=== PATIENT | male | born 1945 | race Caucasian/White ===

== ENCOUNTER 2025-10-16 10:58 | Inpatient (IN) ==
[2025-10-16] MEDS: 0.9 % SODIUM CHLORIDE 1,000 ML IV ONE ×2 (11:35→12:57)
[2025-10-16] MEDS: metroNIDAZOLE 500 MG/100 ML BAG IV ONE (11:49)
[2025-10-16] MEDS: CIPROFLOXACIN 400 MG/200 ML BAG IV ONE (11:50)
[2025-10-16] MEDS: VANCOMYCIN 1,500 MG in 0.9 % SODIUM CHLORIDE 500 ML IV ONE ×2 (12:16→12:57)
[2025-10-16] MEDS ORDERED: HYDROmorphone 0.5 MG/0.5 ML SYRINGE IV PRN (12:21)
[2025-10-16 12:24] LABS: Basophils # (Auto) 0.05 K/mcL (0.00-0.30); Basophils % (Auto) 0.3 % (0.0-2.0); Eosinophils # (Auto) 0.16 K/mcL (0.00-0.70); Eosinophils % (Auto) 1.0 % (0.0-7.0); Hematocrit 37.4 % (40.1-51.0); Hemoglobin 12.1 g/dL (13.7-17.5); Lymphocytes # (Auto) 1.77 K/mcL (1.50-4.80); Lymphocytes % (Auto) 11.0 % (15.5-49.0); Mean Corpuscular HGB Conc 32.4 g/dL (31.0-36.0); Monocytes # (Auto) 1.03 K/mcL (0.10-0.90); Monocytes % (Auto) 6.4 % (1.0-12.0); Neutrophils % (Auto) 81.0 % (38.0-78.0); Platelet Count 307 K/mcL (140-440); RBC 4.20 M/mcL (4.63-6.08); WBC 16.1 K/mcL (4.5-11.0)
[2025-10-16 12:37] LABS: ALT/SGPT 21 U/L (<40); AST/SGOT 33 U/L (<40); Albumin 3.1 gm/dL (3.2-5.2); Albumin/Globulin Ratio 0.8 (1.0-2.3); Alkaline Phosphatase 113 U/L (39-117); Anion Gap 12.0 (8.0-16.0); Bilirubin,Total 0.4 mg/dL (0.1-1.0); Blood Urea Nitrogen 34 mg/dL (8-23); Calcium 9.2 mg/dL (8.6-10.4); Carbon Dioxide 27 mmol/L (22-30); Chloride 96 mmol/L (96-108); Globulin 3.7 gm/dL (2.2-3.7); Glucose 203 mg/dL (70-105); Potassium 4.4 mmol/L (3.3-5.1); Sodium 135 mmol/L (133-145); Thyroid Stimulating Hormone 1.04 uIU/mL (0.27-5.01)
[2025-10-16] MEDS: 0.9 % SODIUM CHLORIDE 250 ML IV ONE (14:14)
[2025-10-16] MEDS ORDERED: DEXTROSE 31 GM ORAL.SUSP PO PRN (16:42)
[2025-10-16] MEDS ORDERED: VANCOMYCIN PER PHARMACY IV SCH (16:42)
[2025-10-16] MEDS ORDERED: DEXTROSE 50% 50 ML VIAL IV PRN ×2 (16:42)
[2025-10-16 17:36] LABS: C-Reactive Protein 15.70 mg/dL (0.03-0.80)
[2025-10-16] MEDS: CEFEPIME 2 GM VIAL IV SCH (17:41)
[2025-10-16] MEDS: 0.9 % SODIUM CHLORIDE 10 ML SYRINGE IV SCH (17:41)
[2025-10-16] MEDS: INSULIN LISPRO 1 UNIT/0.01 ML UNIT SQ SCH ×2 (17:45→19:07)
[2025-10-16] MEDS: metroNIDAZOLE 500 MG/100 ML BAG IV SCH ×2 (18:31→21:50)
[2025-10-16] MEDS: VANCOMYCIN 1,000 MG in 0.9 % SODIUM CHLORIDE 250 ML IV SCH (21:50)
[2025-10-16] MEDS: DOCUSATE SODIUM 100 MG CAPSULE PO SCH (21:50)
[2025-10-17] MEDS: LACTATED RINGERS 1,000 ML IV SCH (01:00)
[2025-10-17 06:29] LABS: Basophils # (Auto) 0.08 K/mcL (0.00-0.30); Basophils % (Auto) 0.5 % (0.0-2.0); Eosinophils # (Auto) 0.38 K/mcL (0.00-0.70); Eosinophils % (Auto) 2.6 % (0.0-7.0); Hematocrit 34.0 % (40.1-51.0); Hemoglobin 10.9 g/dL (13.7-17.5); Lymphocytes # (Auto) 1.96 K/mcL (1.50-4.80); Lymphocytes % (Auto) 13.3 % (15.5-49.0); Mean Corpuscular HGB Conc 32.1 g/dL (31.0-36.0); Monocytes # (Auto) 1.07 K/mcL (0.10-0.90); Monocytes % (Auto) 7.2 % (1.0-12.0); Neutrophils % (Auto) 76.1 % (38.0-78.0); Platelet Count 283 K/mcL (140-440); RBC 3.79 M/mcL (4.63-6.08); WBC 14.8 K/mcL (4.5-11.0)
[2025-10-17] MEDS ORDERED: NALOXONE HCL 0.4 MG/ML VIAL IV PRN ×2 (08:54→19:06)
[2025-10-17 09:05] LABS: ALT/SGPT 20 U/L (<40); AST/SGOT 29 U/L (<40); Albumin 2.7 gm/dL (3.2-5.2); Albumin/Globulin Ratio 0.8 (1.0-2.3); Alkaline Phosphatase 99 U/L (39-117); Anion Gap 12.0 (8.0-16.0); Bilirubin,Direct 0.2 mg/dL (<0.3); Bilirubin,Total 0.4 mg/dL (0.1-1.0); Blood Urea Nitrogen 25 mg/dL (8-23); Calcium 8.7 mg/dL (8.6-10.4); Carbon Dioxide 24 mmol/L (22-30); Chloride 102 mmol/L (96-108); Globulin 3.5 gm/dL (2.2-3.7); Glucose 138 mg/dL (70-105); Phosphorous 2.3 mg/dL (2.5-4.5); Potassium 4.0 mmol/L (3.3-5.1); Sodium 138 mmol/L (133-145); Triglycerides 68 mg/dL (<150); Uric Acid 4.6 mg/dL (2.5-8.0)
[2025-10-17 09:05] LABS: Bacteria,Urine Few /hpf (0); Bilirubin,Urine NEGATIVE (Negative); Color,Urine LT. YELLOW; Glucose,Urine (UA) >=1000 mg/dL (Negative); Ketones,Urine NEGATIVE (Negative); Leukocyte Esterase,Urine TRACE /uL (Negative); PH,Urine 6.0 (5.0-9.0); Protein,Urine 30 mg/dL (Negative); Specific Gravity,Urine 1.010 (1.000-1.035); Urine Budding Yeast Moderate /hpf; Urobilinogen,Urine 0.2 mg/dL
[2025-10-17 09:05] LABS: C-Reactive Protein 15.00 mg/dL (0.03-0.80)
[2025-10-17] MEDS: GABAPENTIN 400 MG CAPSULE PO SCH (09:21)
[2025-10-17] MEDS: LEVOTHYROXINE 75 MCG TABLET PO SCH (09:21)
[2025-10-17] MEDS: METHOCARBAMOL 1,000 MG/10 ML VIAL IV PRN (09:21)
[2025-10-17] MEDS: TAMSULOSIN 0.4 MG CAPSULE PO SCH (09:21)
[2025-10-17] MEDS: ACETAMINOPHEN 1,000 MG/100 ML BAG IV PRN (09:22)
[2025-10-17] MEDS ORDERED: ETOMIDATE 20 MG/10 ML VIAL IV ONE (16:36)
[2025-10-17] MEDS ORDERED: LIDOCAINE 2% PF 5 ML VIAL ONE (16:36)
[2025-10-17] MEDS ORDERED: ONDANSETRON 4 MG/2 ML VIAL ONE (16:36)
[2025-10-17] MEDS ORDERED: ROPIVACAINE HCL/PF 30 ML VIAL IJ ONE (16:36)
[2025-10-17] MEDS ORDERED: DEXAMETHASONE 10 MG/ML VIAL ONE (16:36)
[2025-10-17] MEDS ORDERED: PHENYLephrine 1 MG/10 ML SYRINGE (ANEST) ONE (18:56)
[2025-10-17] MEDS ORDERED: diphenhydrAMINE 50 MG/ML VIAL IV PRN (19:06)
[2025-10-17] MEDS ORDERED: IPRATROPIUM/ALBUTEROL 3 ML AMPUL.NEB NEB PRN (19:06)
[2025-10-17] MEDS ORDERED: fentaNYL 100 MCG/2 ML VIAL IV PRN (19:06)
[2025-10-17] MEDS ORDERED: ONDANSETRON 4 MG/2 ML VIAL IV PRN (19:06)
[2025-10-17] MEDS ORDERED: METHOCARBAMOL 1,000 MG/10 ML VIAL IV PRN (19:06)
[2025-10-17] MEDS ORDERED: MEPERIDINE 25 MG/ML VIAL IV PRN (19:06)
[2025-10-17] MEDS: ACETAMINOPHEN 1,000 MG/100 ML BAG IV ONE (20:21)
[2025-10-17] MEDS: INSULIN GLARGINE, HUMAN 1 UNIT/0.01 ML SQ SCH (21:27)
[2025-10-17] MEDS: HYDROcodone/APAP 10/325MG TABLET PO PRN (21:47)
[2025-10-17] MEDS: ATORVASTATIN 40 MG TABLET PO SCH (21:47)
[2025-10-17] MEDS: MELATONIN 3 MG TABLET PO PRN (21:48)
[2025-10-17] MEDS: FAMOTIDINE 20 MG TABLET PO SCH (21:49)
[2025-10-18] MEDS: HYDROmorphone 0.5 MG/0.5 ML SYRINGE IV PRN (01:08)
[2025-10-18] MEDS: ONDANSETRON 4 MG/2 ML VIAL IV PRN (01:21)
[2025-10-18 06:34] LABS: Basophils # (Auto) 0.02 K/mcL (0.00-0.30); Basophils % (Auto) 0.2 % (0.0-2.0); Eosinophils # (Auto) 0 K/mcL (0.00-0.70); Eosinophils % (Auto) 0 % (0.0-7.0); Hematocrit 32.4 % (40.1-51.0); Hemoglobin 10.3 g/dL (13.7-17.5); Lymphocytes # (Auto) 1.14 K/mcL (1.50-4.80); Lymphocytes % (Auto) 11.0 % (15.5-49.0); Mean Corpuscular HGB Conc 31.8 g/dL (31.0-36.0); Monocytes # (Auto) 0.04 K/mcL (0.10-0.90); Monocytes % (Auto) 0.4 % (1.0-12.0); Neutrophils % (Auto) 88.0 % (38.0-78.0); Platelet Count 290 K/mcL (140-440); RBC 3.55 M/mcL (4.63-6.08); WBC 10.3 K/mcL (4.5-11.0)
[2025-10-18 06:47] LABS: C-Reactive Protein 13.50 mg/dL (0.03-0.80)
[2025-10-18 06:49] LABS: ALT/SGPT 22 U/L (<40); AST/SGOT 32 U/L (<40); Albumin 2.8 gm/dL (3.2-5.2); Albumin/Globulin Ratio 0.8 (1.0-2.3); Alkaline Phosphatase 95 U/L (39-117); Anion Gap 17.0 (8.0-16.0); Bilirubin,Direct 0.2 mg/dL (<0.3); Bilirubin,Total 0.4 mg/dL (0.1-1.0); Blood Urea Nitrogen 29 mg/dL (8-23); Calcium 8.6 mg/dL (8.6-10.4); Carbon Dioxide 20 mmol/L (22-30); Chloride 102 mmol/L (96-108); Globulin 3.4 gm/dL (2.2-3.7); Glucose 198 mg/dL (70-105); Phosphorous 3.6 mg/dL (2.5-4.5); Potassium 4.4 mmol/L (3.3-5.1); Sodium 139 mmol/L (133-145); Triglycerides 51 mg/dL (<150); Uric Acid 5.3 mg/dL (2.5-8.0)
[2025-10-18] MEDS: DONEPEZIL 10 MG TABLET PO SCH (08:20)
[2025-10-18] MEDS: METOPROLOL SUCCINATE 25 MG TAB.XL.24H PO SCH (14:29)
[2025-10-18] MEDS: PIPERACILLIN SODIUM/TAZOBACTAM 4.5 GM in DEXTROSE 5% IN WATER 100 ML IV SCH (14:56)
[2025-10-18] MEDS: LACTATED RINGERS 1,000 ML IV ONE (16:41)
[2025-10-18] MEDS: LACTATED RINGERS 500 ML IV ONE (17:42)
[2025-10-19 06:29] LABS: ALT/SGPT 20 U/L (<40); AST/SGOT 33 U/L (<40); Albumin 2.7 gm/dL (3.2-5.2); Albumin/Globulin Ratio 0.9 (1.0-2.3); Alkaline Phosphatase 84 U/L (39-117); Anion Gap 12.0 (8.0-16.0); Bilirubin,Direct < 0.2 mg/dL (0-0.3); Bilirubin,Total 0.2 mg/dL (0.1-1.0); Blood Urea Nitrogen 26 mg/dL (8-23); Calcium 8.3 mg/dL (8.6-10.4); Carbon Dioxide 22 mmol/L (22-30); Chloride 104 mmol/L (96-108); Globulin 3.1 gm/dL (2.2-3.7); Glucose 156 mg/dL (70-105); Phosphorous 2.2 mg/dL (2.5-4.5); Potassium 3.3 mmol/L (3.3-5.1); Sodium 138 mmol/L (133-145); Triglycerides 58 mg/dL (<150); Uric Acid 4.7 mg/dL (2.5-8.0)
[2025-10-19] MEDS: HEPARIN 5,000 UNIT/ML VIAL SQ SCH (08:03)
[2025-10-19] MEDS: CLOPIDOGREL 75 MG TABLET PO SCH (12:17)
[2025-10-19] MEDS ORDERED: HEPARIN 10 UNITS/ML 5ML FLUSH IV ONE (14:56)
[2025-10-19] MEDS ORDERED: SODIUM CHLORIDE IRRIG SOLUTION 250 ML BOTTLE IRR ONE (14:56)
[2025-10-19] MEDS ORDERED: LIDOCAINE 1% 10 ML VIAL SQ ONE (14:56)
[2025-10-19] MEDS: HEPARIN 10 UNITS/ML 5ML FLUSH IV SCH ×2 (22:25→22:28)
[2025-10-19] MEDS: 0.9 % SODIUM CHLORIDE 10 ML SYRINGE IV SCH (22:30)
[2025-10-20 05:37] LABS: ALT/SGPT 23 U/L (<40); AST/SGOT 47 U/L (<40); Albumin 2.5 gm/dL (3.2-5.2); Albumin/Globulin Ratio 1.0 (1.0-2.3); Alkaline Phosphatase 75 U/L (39-117); Anion Gap 8.0 (8.0-16.0); Bilirubin,Direct < 0.2 mg/dL (0-0.3); Bilirubin,Total < 0.2 mg/dL (0.1-1.0); Blood Urea Nitrogen 18 mg/dL (8-23); Calcium 8.0 mg/dL (8.6-10.4); Carbon Dioxide 24 mmol/L (22-30); Chloride 106 mmol/L (96-108); Globulin 2.6 gm/dL (2.2-3.7); Glucose 153 mg/dL (70-105); Phosphorous 1.9 mg/dL (2.5-4.5); Potassium 3.4 mmol/L (3.3-5.1); Sodium 138 mmol/L (133-145); Triglycerides 71 mg/dL (<150); Uric Acid 3.6 mg/dL (2.5-8.0)
[2025-10-20] MEDS: ASPIRIN 81 MG TAB.CHEW PO SCH (09:54)
[2025-10-20] MEDS: PHOSPHORUS 250 MG TABLET PO SCH (09:54)
[2025-10-20] MEDS: NEUTRA PHOS 1 PACKET PO SCH (09:55)
[2025-10-20] MEDS: METOPROLOL SUCCINATE 25 MG TAB.XL.24H PO SCH (09:57)
[2025-10-20] MEDS: 0.9 % SODIUM CHLORIDE 1,000 ML IV ONE (10:09)
[2025-10-20] MEDS: POTASSIUM PHOSPHATE 40 MEQ in DEXTROSE 5% IN WATER 500 ML IV ONE (12:56)
[2025-10-20] MEDS: LACTULOSE 20 GM/30 ML ORAL.SOL PO PRN (19:37)
[2025-10-20] MEDS: MELATONIN 3 MG TABLET PO SCH (19:38)
[2025-10-20] MEDS: SENNOSIDES 1 TABLET PO PRN (19:39)
[2025-10-20] MEDS: 0.9 % SODIUM CHLORIDE 10 ML SYRINGE IV PRN (21:29)
[2025-10-21 06:08] LABS: Vancomycin,Random 17.8 ug/mL
[2025-10-21 06:09] LABS: ALT/SGPT 26 U/L (<40); AST/SGOT 55 U/L (<40); Albumin 2.6 gm/dL (3.2-5.2); Albumin/Globulin Ratio 0.9 (1.0-2.3); Alkaline Phosphatase 80 U/L (39-117); Anion Gap 9.0 (8.0-16.0); Bilirubin,Direct < 0.2 mg/dL (0-0.3); Bilirubin,Total 0.3 mg/dL (0.1-1.0); Blood Urea Nitrogen 12 mg/dL (8-23); Calcium 8.1 mg/dL (8.6-10.4); Carbon Dioxide 23 mmol/L (22-30); Chloride 107 mmol/L (96-108); Globulin 3.0 gm/dL (2.2-3.7); Glucose 81 mg/dL (70-105); Phosphorous 2.2 mg/dL (2.5-4.5); Potassium 3.6 mmol/L (3.3-5.1); Sodium 139 mmol/L (133-145); Triglycerides 75 mg/dL (<150); Uric Acid 2.6 mg/dL (2.5-8.0)
[2025-10-21] MEDS: POTASSIUM PHOSPHATE 40 MEQ in DEXTROSE 5% IN WATER 500 ML IV ONE (10:04)
[2025-10-21] MEDS: VANCOMYCIN 1,000 MG in 0.9 % SODIUM CHLORIDE 250 ML IV SCH (10:54)
[2025-10-22 06:38] LABS: ALT/SGPT 28 U/L (<40); AST/SGOT 55 U/L (<40); Albumin 2.7 gm/dL (3.2-5.2); Albumin/Globulin Ratio 0.9 (1.0-2.3); Alkaline Phosphatase 79 U/L (39-117); Anion Gap 10.0 (8.0-16.0); Bilirubin,Direct < 0.2 mg/dL (0-0.3); Bilirubin,Total 0.3 mg/dL (0.1-1.0); Blood Urea Nitrogen 10 mg/dL (8-23); Calcium 7.9 mg/dL (8.6-10.4); Carbon Dioxide 23 mmol/L (22-30); Chloride 106 mmol/L (96-108); Globulin 2.9 gm/dL (2.2-3.7); Glucose 163 mg/dL (70-105); Glucose 164 mg/dL (70-105); Phosphorous 2.3 mg/dL (2.5-4.5); Potassium 3.9 mmol/L (3.3-5.1); Sodium 139 mmol/L (133-145); Triglycerides 100 mg/dL (<150); Uric Acid 2.0 mg/dL (2.5-8.0)
[2025-10-23 06:22] LABS: Basophils # (Auto) 0.09 K/mcL (0.00-0.30); Basophils % (Auto) 0.5 % (0.0-2.0); Eosinophils # (Auto) 0.82 K/mcL (0.00-0.70); Eosinophils % (Auto) 4.6 % (0.0-7.0); Hematocrit 32.4 % (40.1-51.0); Hemoglobin 10.6 g/dL (13.7-17.5); Lymphocytes # (Auto) 3.23 K/mcL (1.50-4.80); Lymphocytes % (Auto) 18.3 % (15.5-49.0); Mean Corpuscular HGB Conc 32.7 g/dL (31.0-36.0); Monocytes # (Auto) 1.47 K/mcL (0.10-0.90); Monocytes % (Auto) 8.3 % (1.0-12.0); Neutrophils % (Auto) 67.8 % (38.0-78.0); Platelet Count 353 K/mcL (140-440); RBC 3.63 M/mcL (4.63-6.08); WBC 17.7 K/mcL (4.5-11.0)
[2025-10-23 06:39] LABS: ALT/SGPT 31 U/L (<40); AST/SGOT 61 U/L (<40); Albumin 3.0 gm/dL (3.2-5.2); Albumin/Globulin Ratio 0.9 (1.0-2.3); Alkaline Phosphatase 90 U/L (39-117); Anion Gap 8.0 (8.0-16.0); Bilirubin,Total 0.4 mg/dL (0.1-1.0); Blood Urea Nitrogen 10 mg/dL (8-23); Calcium 8.4 mg/dL (8.6-10.4); Carbon Dioxide 26 mmol/L (22-30); Chloride 107 mmol/L (96-108); Globulin 3.3 gm/dL (2.2-3.7); Glucose 119 mg/dL (70-105); Potassium 4.7 mmol/L (3.3-5.1); Sodium 141 mmol/L (133-145)
[2025-10-24 06:33] LABS: Basophils # (Auto) 0.09 K/mcL (0.00-0.30); Basophils % (Auto) 0.7 % (0.0-2.0); Eosinophils # (Auto) 0.82 K/mcL (0.00-0.70); Eosinophils % (Auto) 5.9 % (0.0-7.0); Hematocrit 29.1 % (40.1-51.0); Hemoglobin 9.4 g/dL (13.7-17.5); Lymphocytes # (Auto) 2.74 K/mcL (1.50-4.80); Lymphocytes % (Auto) 19.8 % (15.5-49.0); Mean Corpuscular HGB Conc 32.3 g/dL (31.0-36.0); Monocytes # (Auto) 1.32 K/mcL (0.10-0.90); Monocytes % (Auto) 9.6 % (1.0-12.0); Neutrophils % (Auto) 63.7 % (38.0-78.0); Platelet Count 334 K/mcL (140-440); RBC 3.21 M/mcL (4.63-6.08); WBC 13.8 K/mcL (4.5-11.0)
[2025-10-24 06:54] LABS: ALT/SGPT 27 U/L (<40); AST/SGOT 55 U/L (<40); Albumin 2.8 gm/dL (3.2-5.2); Albumin/Globulin Ratio 0.9 (1.0-2.3); Alkaline Phosphatase 80 U/L (39-117); Anion Gap 9.0 (8.0-16.0); Bilirubin,Total 0.3 mg/dL (0.1-1.0); Blood Urea Nitrogen 15 mg/dL (8-23); Calcium 8.1 mg/dL (8.6-10.4); Carbon Dioxide 24 mmol/L (22-30); Chloride 107 mmol/L (96-108); Globulin 3.0 gm/dL (2.2-3.7); Glucose 66 mg/dL (70-105); Potassium 4.1 mmol/L (3.3-5.1); Sodium 140 mmol/L (133-145)
[2025-10-24] MEDS: POLYETHYLENE GLYCOL 3350 17 GM PACKET PO PRN (10:40)
[2025-10-25 06:58] LABS: ALT/SGPT 21 U/L (<40); AST/SGOT 44 U/L (<40); Albumin 2.5 gm/dL (3.2-5.2); Albumin/Globulin Ratio 0.9 (1.0-2.3); Alkaline Phosphatase 77 U/L (39-117); Anion Gap 7.0 (8.0-16.0); Bilirubin,Total 0.3 mg/dL (0.1-1.0); Blood Urea Nitrogen 14 mg/dL (8-23); Calcium 7.9 mg/dL (8.6-10.4); Carbon Dioxide 24 mmol/L (22-30); Chloride 108 mmol/L (96-108); Globulin 2.9 gm/dL (2.2-3.7); Glucose 100 mg/dL (70-105); Potassium 4.5 mmol/L (3.3-5.1); Sodium 139 mmol/L (133-145)
[2025-10-25 07:04] LABS: Basophils # (Auto) 0.08 K/mcL (0.00-0.30); Basophils % (Auto) 0.6 % (0.0-2.0); Eosinophils # (Auto) 0.84 K/mcL (0.00-0.70); Eosinophils % (Auto) 6.8 % (0.0-7.0); Hematocrit 28.1 % (40.1-51.0); Hemoglobin 9.0 g/dL (13.7-17.5); Lymphocytes # (Auto) 2.59 K/mcL (1.50-4.80); Lymphocytes % (Auto) 20.8 % (15.5-49.0); Mean Corpuscular HGB Conc 32.0 g/dL (31.0-36.0); Monocytes # (Auto) 0.96 K/mcL (0.10-0.90); Monocytes % (Auto) 7.7 % (1.0-12.0); Neutrophils % (Auto) 63.8 % (38.0-78.0); Platelet Count 303 K/mcL (140-440); RBC 3.06 M/mcL (4.63-6.08); WBC 12.4 K/mcL (4.5-11.0)
[2025-10-26 06:11] LABS: Basophils # (Auto) 0.11 K/mcL (0.00-0.30); Basophils % (Auto) 1.0 % (0.0-2.0); Eosinophils # (Auto) 1.10 K/mcL (0.00-0.70); Eosinophils % (Auto) 9.6 % (0.0-7.0); Hematocrit 30.4 % (40.1-51.0); Hemoglobin 9.6 g/dL (13.7-17.5); Lymphocytes # (Auto) 2.74 K/mcL (1.50-4.80); Lymphocytes % (Auto) 23.9 % (15.5-49.0); Mean Corpuscular HGB Conc 31.6 g/dL (31.0-36.0); Monocytes # (Auto) 0.97 K/mcL (0.10-0.90); Monocytes % (Auto) 8.5 % (1.0-12.0); Neutrophils % (Auto) 56.7 % (38.0-78.0); Platelet Count 323 K/mcL (140-440); RBC 3.33 M/mcL (4.63-6.08); WBC 11.5 K/mcL (4.5-11.0)
[2025-10-26 06:35] LABS: ALT/SGPT 24 U/L (<40); AST/SGOT 49 U/L (<40); Albumin 2.6 gm/dL (3.2-5.2); Albumin/Globulin Ratio 0.8 (1.0-2.3); Alkaline Phosphatase 85 U/L (39-117); Anion Gap 7.0 (8.0-16.0); Bilirubin,Total 0.4 mg/dL (0.1-1.0); Blood Urea Nitrogen 17 mg/dL (8-23); Calcium 8.3 mg/dL (8.6-10.4); Carbon Dioxide 26 mmol/L (22-30); Chloride 105 mmol/L (96-108); Globulin 3.2 gm/dL (2.2-3.7); Glucose 114 mg/dL (70-105); Potassium 4.3 mmol/L (3.3-5.1); Sodium 138 mmol/L (133-145)
== END 2025-10-26 10:00 | DRG 239 ==
LOC: ED 10:58 → ICU 16:35 → MEDSUR 10-19 16:21
PROVIDERS: ADMIT Student in an Organized Health Care Education/Training Program; ATTEND Internal Medicine